=== PATIENT | female | born 1970 | race Caucasian/White ===

== ENCOUNTER → 2016-09-22 | Outpatient (CLI) | payer BC ==
--- NOTE | 2016-09-22 16:00 | MAMMOGRAPHY REPORT ---
BILATERAL DIGITAL SCREENING MAMMOGRAM TOMOSYNTHESIS WITH CAD: 09/22/2016 CLINICAL HISTORY: Routine screening. Patient reported she thought she felt a lump in the lateral rig ht breast but was unable to feel it today. TECHNIQUE: Breast tomosynthesis in addition to standard 2D mammography was performed. Current study was also evaluated with a Computer Aided Detection (CAD) system. COMPARISON: Comparison is made to exams dated: 09/21/2015 mammogram, 09/15/2014 mammogram, 09/12/2013 m ammogram, 09/11/2012 mammogram, and 03/26/2014 mammogram - [facility]. BREAST COMPOSITION: The tissue of both breasts is extremely dense, which lowers the sensitivity of m ammography. FINDINGS: There is a newly visualized circumscribed 6.5 mm oval mass in the upper outer anterior rig ht breast, for which additional targeted ultrasound and possible additional mammographic views are re commended. There is a stable metallic biopsy marker in the 12:00 left breast. No other new suspicious mass, arch itectural distortion or cluster of microcalcifications is seen bilaterally. IMPRESSION: ACR BI-RADS CATEGORY 0: INCOMPLETE EVALUATION: NEED ADDITIONAL IMAGING EVALUATION 1. The newly visualized 6.5 mm circumscribed oval mass in the right breast needs additional evaluati on. 2. At the time of diagnostic workup, targeted ultrasound could also be performed in the area of poss ible lump felt by the patient. The patient will be called to schedule an appointment. Approximately 10% of breast cancers are not detected with mammography. A negative mammographic report should not delay biopsy if a clinically suggestive mass is present. Kayleigh Sanchez M.D. ay/:09/22/2016 15:48:25 Outpatient Coder: Paige PICKETT)(Kelsey), [facility] letter sent: Addl Imaging 0 BI-RADS Code: ACR BI-RADS Category 0: Incomplete Evaluation: Need Additional Imaging Evaluation
== END | disposition home or self-care (01) ==
LOC: C.MAMM 07:07
PROVIDERS: ATTEND Family Medicine
DX: Z12.31 Encounter for screening mammogram for malignant neoplasm of breast (principal); N63 Unspecified lump in breast

== ENCOUNTER → 2016-10-04 | Outpatient (CLI) | payer BC ==
--- NOTE | 2016-10-04 13:56 | MAMMOGRAPHY REPORT ---
ULTRASOUND OF RIGHT BREAST: 10/04/2016 CLINICAL HISTORY: 46-year-old woman called back from screening mammography for a newly visualized sup erficial oval 6.5 mm mass in the upper outer anterior right breast. During the recent screening mamm ogram, the patient reported a new pea-sized palpable lump in the lateral right breast. COMPARISON: Comparison is made to exams dated: 09/22/2016 mammogram, 10/01/2015 stereotactic biopsy, 10/01/2015 mammogram, 09/25/2015 mammogram, 09/21/2015 mammogram, and 03/26/2014 ultrasound - [facility]. FINDINGS: First targeted ultrasound was performed in the upper outer quadrant of the right breast to evaluate for the newly visualized 6.5 mm oval circumscribed mammographic mass. In the 9:00 axis, 1 cm from the nipple, there is a superficial oval parallel circumscribed solid appearing mass with a th in peripheral rim of hypoechoic tissue and central isoechoic to echogenic tissue. This mass measures 7.0 x 2.2 x 5.7 mm. This probably represents an intramammary lymph node although central blood flow is not identified on the current ultrasound for confirmation. This sonographic mass was then evalua shante with palpation and a small pea-sized lump corresponds to this mass visualized on ultrasound. The n this lump was pointed out to the patient and she confirmed that that is the new pea-sized lump she was also feeling. IMPRESSION: ACR-BI-RADS CATEGORY 3: PROBABLY BENIGN - FOLLOW-UP RECOMMENDED 1. The newly visualized 6.5 mm mammographic mass in the 9:00 right breast also correlates with the ne w palpable lump identified by the patient. This is thought to represent an intramammary lymph node o n ultrasound, although central blood flow is not detected for confirmation. Therefore, a short inter ashley follow-up diagnostic right mammogram and repeat targeted ultrasound is recommended to ensure stab ility in 6 months. 2. Continued clinical monitoring is recommended for the palpable lump to ensure does not increase in size before the next diagnostic appointment. If it does, she should return for tissue sampling. These results and recommendations were discussed with the patient at the time of the exam. She tenta tively scheduled a follow-up appointment prior to leaving our department. Kayleigh Sanchez M.D. ay/:10/04/2016 09:08:07 Technical Sales Support Specialist: Dr. Kayleigh Sanchez, [facility] letter sent: Follow Up Recommended 3 BI-RADS Code: ACR-BI-RADS Category 3: Probably Benign
== END | disposition home or self-care (01) ==
LOC: C.MAMM 07:56
PROVIDERS: ATTEND Family Medicine
DX: R92.2 Inconclusive mammogram (principal); N63 Unspecified lump in breast

== ENCOUNTER → 2017-04-06 | Outpatient (CLI) | payer OTHER ==
--- NOTE | 2017-04-06 14:29 | MAMMOGRAPHY REPORT ---
UNILATERAL RIGHT DIGITAL DIAGNOSTIC MAMMOGRAM TOMOSYNTHESIS WITH CAD AND TARGETED RIGHT ULTRASOUND: CLINICAL HISTORY: Short interval follow-up of right breast mass. TECHNIQUE: Breast tomosynthesis in addition to standard 2D mammography was performed. Current study was also evaluated with a Computer Aided Detection (CAD) system. Right CC and MLO 2-D and tomosynthe sis images were obtained. COMPARISON: Comparison is made to exams dated: 10/04/2016 ultrasound, 09/22/2016 mammogram, 10/01/2015 st ereotactic biopsy, 10/01/2015 mammogram, 09/25/2015 mammogram, and 09/21/2015 mammogram - [facility]. BREAST COMPOSITION: The tissue of the right breast is extremely dense, which lowers the sensitivity of mammography. FINDINGS: Again noted is an oval circumscribed mass within the right lateral breast at approximately 9:00. The mass appears slightly larger in size, currently measuring 9 mm on the MLO view, previously measuring 7 mm when measuring with a similar technique. The remainder of the right breast is stable mammographically compared to prior exams, without suspicious masses, calcifications, or areas of arc hitectural distortion noted. Targeted ultrasound was performed of the right 9:00 breast in the region of the mammographic mass. I n the right breast at 9:00, 1 cm from the nipple, again noted is an oval parallel circumscribed hypoe choic mass. The mass is slightly increased in size compared to the September 2016 exam, currently measu ring 9 x 3 x 6 mm, previously measuring 7 x 2 x 6 mm. This corresponds with the mammographic mass as well as the palpable lump felt by the patient. Although the mass has benign features on imaging, gi elise the interval increase in size and palpable nature, ultrasound guided biopsy is recommended for fu rther evaluation. IMPRESSION: ACR BI-RADS CATEGORY 4: SUSPICIOUS, TARGETED ULTRASOUND ACR BI-RADS CATEGORY 4: SUSPICIO US Slight interval increase in size of 9 mm circumscribed mass in the right 9:00 breast. Given the inte rval increase in size, the mass is indeterminate and ultrasound-guided core needle biopsy is recommen ded for further evaluation. A phone call was made to the physician's office to confirm faxed results were received. The patient has been verbally notified of the results. She tentatively scheduled the biopsy before leaving the [employer]. Approximately 10% of breast cancers are not detected with mammography. A negative mammographic report should not delay biopsy if a clinically suggestive mass is present. Ce Tafoya M.D. ah/:04/06/2017 08:22:06 Tree Puller: Paige PICKETT)(Kelsey), [facility] letter sent: Abnormal 4/5 BI-RADS Code: ACR BI-RADS Category 4: Suspicious Ultrasound BI-RADS: ACR BI-RADS Category 4: Suspici ous
== END | disposition home or self-care (01) ==
LOC: C.MAMM 07:54
PROVIDERS: ATTEND Family Medicine
DX: N63.11 Unspecified lump in the right breast, upper outer quadrant (principal)

== ENCOUNTER → 2017-04-13 | Outpatient (CLI) | payer OTHER ==
--- NOTE | 2017-04-13 10:02 | Discharge Instructions ---
Discharge Instructions Procedure Procedure Date: Apr 13, 2017. Reason for visit: Right Mass. Discharge Discharge Date: Apr 13, 2017. Discharge Diagnosis: status post breast biopsy Instructions Activity Recommendations: Additional Limitations (see below) Return to School/Work: no limitations Recommended Home Diet: No Limitations Provider Instructions: ACTIVITY RECOMMENDATIONS: * No lifting, pushing, pulling or exercising the affected side for three days. RETURN TO SCHOOL/WORK: * You may return to work/school after the procedure, but do not perform any strenuous activities for 24 to 48 hours. MEDICATIONS: * Tylenol (two 325 mg) every four to six hours if needed for mild pain (if not allergic to Tylenol). DIET: * Resume previous diet. SPECIAL CARE INSTRUCTIONS: * Keep biopsy site dry for 24 hours. May shower after 24 hours, but do not soak (bathe) incision. * May remove Tegaderm (plastic patch) tomorrow AFTER showering. * Leave the steri-strips on for one week. Allow the steri-strips to fall off by themselves. If not off after one week, you may remove them. You may place a Bandaid crosswise over the strips, if desired. * Apply ice 10 minutes on and 10 minutes off as needed. * Wear a bra at bedtime to sleep more comfortably for 2-3 days. * Your referring physician should have the results after approximately 5 to 7 business days. * Call for unusual bleeding, fever, drainage, etc or if you have any questions call during normal business hours or after hours call Dr Tafoya, [phone]. FOLLOW UP VISIT: Follow-up with Referring Physician as scheduled. Zulay Crawfordy Recommendations: Call your doctor if: * Temperature above 101 degrees * Pain not relieved by pain medicine ordered * There is increased drainage or redness from any incision * You have any unanswered questions or concerns. Your Doctors Instructions noted above were prepared by provider Ce Tafoya. Patient Signature Section: Patient Instructions Signature Page Ping Reagan Patient (or Guardian) Signature/Date: I have read and understand the instructions given to me by my caregivers. Caregiver/RN/Doctor Signature/Date: The above-named patient and/or guardian has received patient instructions on this date. + Original Patient Signature Page (only) stays with chart. Please make copy for patient.
--- NOTE | 2017-04-13 15:09 | MAMMOGRAPHY REPORT ---
ULTRASOUND GUIDED BIOPSY RIGHT BREAST: 04/13/2017 CLINICAL HISTORY: Right 9:00 breast mass. PATIENT CONSENT: The procedure, risks and benefits were discussed with the patient and informed writt en consent was obtained. A timeout was performed immediately prior to the procedure. PROCEDURE DESCRIPTION: With ultrasound guidance, aseptic technique, and lidocaine as the local anesth etic (1% lidocaine to anesthetize the skin and 1% lidocaine with epinephrine to anesthetize the deepe r tissues), the mass of concern in the right 9:00 anterior breast was sampled 3 times with a 14-gauge Achieve biopsy needle. Immediately thereafter, with ultrasound guidance, aseptic technique, and lid ocaine as the local anesthetic, a metallic localizer clip was placed centrally in the mass. Direct p ressure was applied to the site immediately post procedure and hemostasis was achieved. Postprocedur e unilateral mammograms were performed to confirm placement of the clip in the expected location of t he breast mass. The patient tolerated the procedure without complication. She was given wound care instructions. The specimens were sent to pathology for analysis. COMPARISON: Comparison is made to exams dated: 04/06/2017 ultrasound, 04/06/2017 mammogram, 10/04/2016 ult rasound, and 09/22/2016 mammogram - [facility]. IMPRESSION: ULTRASOUND GUIDED BIOPSY Ultrasound guided core needle biopsy of the right 9:00 breast mass, with clip placement. The patient will receive pathology results from her referring provider. Pending benign pathology results, the p atient can return to routine annual mammography. Ce Tafoya M.D. ah/:04/13/2017 10:04:15 Relay Tester: Yuliet PICKETT)(M), [facility]
--- NOTE | 2017-04-13 15:09 | MAMMOGRAPHY REPORT ---
UNILATERAL RIGHT DIGITAL DIAGNOSTIC MAMMOGRAM TOMOSYNTHESIS: 04/13/2017 CLINICAL HISTORY: Status post right breast biopsy. TECHNIQUE: Breast tomosynthesis in addition to standard 2D mammography was performed. Postprocedura l right CC and ML tomosynthesis images were obtained. COMPARISON: Comparison is made to exams dated: 04/06/2017 ultrasound, 04/06/2017 mammogram, 10/04/2016 ult rasound, 09/22/2016 mammogram, and 10/01/2015 mammogram - [facility]. BREAST COMPOSITION: The tissue of the right breast is extremely dense, which lowers the sensitivity of mammography. FINDINGS: A new biopsy marker clip is seen at the site of the biopsied mass in the right 9 o'clock a nterior breast. No significant postbiopsy hematoma is seen. IMPRESSION: POST PROCEDURE IMAGING FOR MARKER PLACEMENT New biopsy marker clip status post right breast biopsy. Pathology results are pending. Approximately 10% of breast cancers are not detected with mammography. A negative mammographic report should not delay biopsy if a clinically suggestive mass is present. Ce Tafoya M.D. ah/:04/13/2017 10:12:30 Motor Tune Up Specialist: Yuliet ZUNIGA(Isabella)(M), [facility] BI-RADS Code: Post Procedure Imaging For Marker Placement
== END | disposition home or self-care (01) ==
LOC: C.MAMM 09:13
PROVIDERS: ATTEND Family Medicine
DX: N63.10 Unspecified lump in the right breast, unspecified quadrant (principal); D24.1 Benign neoplasm of right breast

== ENCOUNTER → 2017-09-28 | Outpatient (CLI) | payer OTHER ==
--- NOTE | 2017-09-28 14:56 | MAMMOGRAPHY REPORT ---
BILATERAL DIGITAL SCREENING MAMMOGRAM TOMOSYNTHESIS WITH CAD: 09/28/2017 CLINICAL HISTORY: Routine screening. TECHNIQUE: The study was acquired using full field digital technology and interpreted from soft copy. Breast tomosynthesis in addition to standard 2D mammography was performed. Current study was also ev aluated with a Computer Aided Detection (CAD) system. COMPARISON: Comparison is made to exams dated: 04/13/2017 mammogram, 04/06/2017 mammogram, 09/22/2016 ma mmogram, 09/21/2015 mammogram, 09/12/2013 mammogram, and 04/13/2017 ultrasound biopsy - [facility]. BREAST COMPOSITION: The tissue of both breasts is extremely dense, which lowers the sensitivity of ma mmography. FINDINGS: No suspicious masses, calcifications, or areas of architectural distortion are noted in either breast . There has been no significant interval change compared to prior exams. Small circumscribed mass wi th an associated biopsy clip in the right upper outer quadrant is stable. A biopsy clip is also note d within the left 12:00 breast. Asymmetry in the right inferior breast on the MLO view is stable com pared to prior exams including the 2016 exam and has the appearance of normal fibroglandular tissue a nd intermittent is edematous. IMPRESSION: ACR BI-RADS CATEGORY 2: BENIGN There is no mammographic evidence of malignancy. A 1 year screening mammogram is recommended.( [id number]) The patient will receive written notification of the results. Some breast cancers are not detected with mammography. A negative mammographic report should not mike y biopsy if a clinically suggestive mass is present. Ce Tafoya M.D. ah/:09/28/2017 07:49:21 Ldr Nurse: RT Afshin(R)(M), [facility] letter sent: Normal 1/2 BI-RADS Code: ACR BI-RADS Category 2: Benign
== END | disposition home or self-care (01) ==
LOC: C.MAMM 07:05
PROVIDERS: ATTEND Family Medicine
DX: Z12.31 Encounter for screening mammogram for malignant neoplasm of breast (principal)